=== PATIENT | male | born 1990 | race Caucasian/White ===

== ENCOUNTER 2020-08-21 16:23 | Emergency (ER) | payer MEDICAID ==
[~2020-08-21] VITALS: Ht 167.6 cm; Wt 70.0 kg
[2020-08-21] MEDS ORDERED: KETOROLAC 60MG/2ML VIAL IM STA (20:11)
[2020-08-21] MEDS ORDERED: IBUPROFEN 600MG TABLET PO STA (20:17)
[2020-08-21 20:47] VITALS: BP 117/76
== END 2020-08-21 20:48 | disposition home or self-care (01) ==
LOC: ER 16:56
DX: S00.83XA Contusion of other part of head, initial encounter (principal); M54.2 Cervicalgia; M25.511 Pain in right shoulder; M25.521 Pain in right elbow; W11.XXXA Fall on and from ladder, initial encounter; Y93.9 Activity, unspecified; Y92.9 Unspecified place or not applicable
CPT/HCPCS: 73030; 73080; 99285; A4565; J1885